=== PATIENT | female | born 1990 | race Caucasian/White ===

== ENCOUNTER 2024-07-18 08:35 | Emergency (ER) | payer OTHER, SELFPAY ==
[2024-07-18 08:40] VITALS: BP 164/85; PULSE 74; TEMP 36.9; O2SAT 97; BMI 26.6
--- NOTE | 2024-07-18 08:49 | PC.NURSE ---
pt noticed last night her R pupil was significantly smaller than her L pupil.
[2024-07-18] MEDS: FLUORESCEIN SODIUM 1 MG STRIP OP (09:08)
[2024-07-18] MEDS: TETRACAINE HCL 0.5% OP SOL 80 DROP/4 ML BOTTLE OP (09:09)
--- NOTE | 2024-07-18 09:22 | ED.GENADUL1 ---
HPI HPI - General Adult General Chief complaint: Eye Problems Stated complaint: EYE IRRITATION Time Seen by Provider: 07/18/24 09:03 Source: patient Mode of arrival: walk-in Limitations: no limitations History of Present Illness HPI narrative: Patient is a 34-year-old female who is presenting to the ER today with chief complaint of redness, photophobia, pain to the right eye with no significant swelling. Patient has no vision changes, no double vision, no blurry vision. Patient also has slightly dilated left pupil. Patient has no pain to her left eye. Patient has had no new products around her left eye, no new antihistamines, no scopolamine patches, no other products or chemicals that could have caused mild dilation to the left eye. Patient has no headache. No trauma. Patient has no headache or neck pain. No chest pain or shortness of breath. No other acute complaints. All systems are negative except as noted/marked. All systems reviewed and otherwise negative. Nurses note and vital signs reviewed and patient is not hypoxic. General: The patient appears well and in no apparent distress. Patient is resting comfortably on cart. Patient is not toxic, lethargic, or listless Skin: Warm, dry, no pallor noted. There is no rash noted. No petechiae, purpura. Head: Normocephalic, atraumatic Eye: Patient's left pupil is 4 mm, which constricted 2 mm; patient's right pupil is 3 mm constricted to 2 mm. The left pupil is slightly dilated compared to the right. Patient's right eye shows redness, no swelling to the upper or lower eyelid, please see procedure note., no drainage, EOMI. PERRL Ears, Nose, Mouth, and Throat: oral mucosa is moist. Nares patent. Mouth without vesicles. Cardiovascular: Regular Rate and Rhythm, no murmur, gallop, rub Respiratory: Patient is in no distress, Musculoskeletal: Patient has full range of motion of all of the extremities, no motor, sensory, or focal neurological deficits Neurological: A&O x4, normal speech Psychiatric: Cooperative Related Data Previous Rx's ?Medication ?Instructions ?Recorded tobramycin 0.3 %-dexamethasone 1 drp ophthalmic (eye) Q4H 5 days 07/18/24 0.05 % eye drops,suspension #5 mL (Tobradex ST) Allergies Allergy/AdvReac Type Severity Reaction Status Date / Time No Known Drug Allergies Allergy Verified 07/18/24 08:45 Opioid HPI Opioid Management Most Recent Opioid Data: No Data to Display Exam Constitutional Vital Signs, click to edit/add: Last Vital Signs Temp 98.4 F 07/18/24 08:40 Pulse 74 07/18/24 08:40 Resp 16 07/18/24 08:40 BP 164/85 H 07/18/24 08:40 Pulse Ox 97 07/18/24 08:40 O2 Del Method Room Air 07/18/24 08:40 Course Vital Signs Vital signs: Vital Signs Temperature 98.4 F 07/18/24 08:40 Pulse Rate 74 07/18/24 08:40 Respiratory Rate 16 07/18/24 08:40 Blood Pressure 164/85 H 07/18/24 08:40 Pulse Oximetry 97 07/18/24 08:40 Oxygen Delivery Method Room Air 07/18/24 08:40 Temperature 98.4 F 07/18/24 08:40 Pulse Rate 74 07/18/24 08:40 Respiratory Rate 16 07/18/24 08:40 Blood Pressure 164/85 H 07/18/24 08:40 Pulse Oximetry 97 07/18/24 08:40 Oxygen Delivery Method Room Air 07/18/24 08:40 Medical Decision Making MDM Narrative Medical decision making narrative: Procedure note: Right eye evaluation Patient's right eye is red, clear tears, no obvious foreign body. Upper and lower eyelid were everted, no foreign bodies noted. Patient had 3 drops of tetracaine applied to the right eye. Patient had good pain relief with the tetracaine. Fluorescein stain was done, patient has no corneal abrasion, no ulceration, no foreign body. Patient tolerated procedure well without difficulty. Patient was placed on TobraDex. Patient has no foreign body, patient may have a early iritis of the right eye with mild dilation to the pupil left eye with no vision changes and no pain. No headache. Patient may have early 3rd nerve palsy. Patient will follow-up with eye physician, Dr. Johnson her eye physician was not in the office today. Patient does wear contacts. I did not see any type of ulceration to the right eye, no corneal abrasion, no foreign body. Patient knows the importance of calling her eye physician today and following up in the next 1 to 2 days. Patient was placed on TobraDex drops. Education done at bedside in the discharge paperwork. Patient knows not to wear contacts until she follows up with her eye physician. Patient was told not to wear contacts in the next week at least. Patient is a full-time mother. No foreign bodies into the right eye. Discharge Plan Discharge Stand Alone Forms: Work/School Release, Portal Instructions Chief Complaint: Eye Problems Clinical Impression: Acute iritis, 3rd nerve palsy, partial Patient Disposition: Home, Self-Care Time of Disposition Decision: 09:21 Condition: Fair Prescriptions / Home Meds: New Tobradex ST 0.3-0.05 % drops,suspension 1 drp ophthalmic (eye) Q4H 5 Days Qty: 5 0RF Print Language: Nigerian Instructions: Iritis (ED), Ptosis (ED) Additional Instructions: Call Dr. Martinez your eye physician from [place] today and make a follow-up appointment in the next 1 to 2 days Start using your eyedrops today, only use the eyedrops for 3 to 5 days only Referrals: Physician,Non-Staff, MD [Primary Care Provider] - 1 week
== END 2024-07-18 09:30 | disposition home or self-care (01) ==
PROVIDERS: Emergency Provider Emergency Medicine
DX: H20.00 Unspecified acute and subacute iridocyclitis (principal); H49.01 Third [oculomotor] nerve palsy, right eye
CPT/HCPCS: 99283